=== PATIENT | female | born 1990 | race Caucasian/White ===

== ENCOUNTER 2020-09-24 13:20 | Emergency (ER) | payer OTHER ==
[~2020-09-24 13:20] MED LIST: ATARAX25 MG PO; HYDRALAZINE25 MG PO; MACROBID100 MG PO; MINIPRESS2 MG PO; TRANDATE100 MG PO; ZESTRIL5 MG PO; ZOFRAN8 MG PO
[2020-09-24 15:30] LABS: BASOPHIL 0.9 % (0-2); HCT 36.9 % (37.0-47.0); LYMPHOCYTE 45.4 % (15-48); MCH 32.4 pg (25.0-31.0); MCHC 35.2 g/dL (32.0-36.0); MONOCYTE 8.1 % (0-12); MPV 10.5 fL (6.0-9.5); NEUTROPHIL 41.4 % (41-80); NRBC 0; PLT 178 K/uL (150-400); RBC 4.01 M/uL (4.20-5.40); RDW 12.6 % (11.5-14.0); WBC 5.7 K/uL (4.0-10.5)
[2020-09-24 16:08] LABS: ALBUMIN 3.9 g/dL (3.4-5.0); BILIRUBIN - TOTAL 0.4 mg/dL (0.2-1.0); BUN/CREAT RATIO (CALC) 25.7 RATIO; CREATININE 0.74 mg/dL (0.51-0.95); GLOBULIN (CALCULATION) 3.3 g/dL; POTASSIUM 3.7 mmol/L (3.5-5.1); TOTAL PROTEIN 7.2 g/dL (6.4-8.2)
[2020-09-24 16:16] LABS: INR 1.21 (0.9-1.2); PROTHROMBIN TIME 14.5 SECONDS (11.4-13.6); PTT 34.3 SECONDS (22.2-34.7)
== END 2020-09-24 18:44 | disposition other institution (70) ==
LOC: FER 13:20
PROVIDERS: Emergency Medicine
DX: S11.83XA Puncture wound without foreign body of other specified part of neck, initial encounter (principal); F17.210 Nicotine dependence, cigarettes, uncomplicated; Z86.19 Personal history of other infectious and parasitic diseases; W22.8XXA Striking against or struck by other objects, initial encounter; Y92.89 Other specified places as the place of occurrence of the external cause; Y99.0 Civilian activity done for income or pay
CPT/HCPCS: 36415; 70491; 71260; 80053; 85025; 85610; 85730; J0690; J1170; J1885; J2405; J7030; Q9967